=== PATIENT | female | born 1985 | race Caucasian/White ===

== ENCOUNTER 2019-01-13 14:39 | Emergency (ER) | payer BC ==
[~2019-01-13] VITALS: Ht 175.3 cm; Wt 107.5 kg
[2019-01-13 14:45] VITALS: BP_SYST 146
--- NOTE | 2019-01-13 14:45 | NUR ---
BROUGHT BACK TO BED #2 AND TRIAGED. REPORT GIVEN TO RAJINDER
--- NOTE | 2019-01-13 15:28 | NUR ---
GELA Duckworth at bedside examining patient.
[2019-01-13] MEDS ORDERED: ONDANSETRON HCL 4 MG/2 ML VIAL IVP ONE (15:30)
[2019-01-13] MEDS ORDERED: MORPHINE 4 MG/ML INJ. SYRINGE IVP ONE (15:30)
--- NOTE | 2019-01-13 15:30 | NUR ---
Patient presented to ER with abdominal pain x1 1/2 weeks. Patient alert and orietned, ambulatory to ER, arrived with , patient states abdominal pain is from ovarian cyst rupture. Patient states pain is 10/10, denies N/V/D, afebrile, skin pink.
--- NOTE | 2019-01-13 15:45 | NUR ---
Patient to Ultrasound with radiology staff via wheel chair
--- NOTE | 2019-01-13 16:28 | NUR ---
Patient to ER bed 2
--- NOTE | 2019-01-13 16:30 | NUR ---
# 20 gauge angiocath placed toleft arm. Use of asceptic technique. Opsite placed over site. Blood return noted. Blood for lab drawn from site. Flushed with 10 cc of normal saline. No evidence of infiltration noted. Patient tolerated well.
[2019-01-13 17:37] LABS: BILIRUBIN,URINE NEGATIVE (NEGATIVE); BLOOD, URINE 1+ (NEGATIVE); CLARITY/URINE SL HAZY (CLEAR); COLOR,URINE YELLOW (YELLOW); GLUCOSE,URINE NEGATIVE (NEGATIVE); KETONES,URINE 2+ (NEGATIVE); LEUKOCYTE ESTERASE ,URINE NEGATIVE (NEGATIVE); NITRITE, URINE NEGATIVE (NEGATIVE); PH,URINE 6.5 (5.0-8.0); PROTEIN URINE NEGATIVE (NEGATIVE)
[2019-01-13 17:45] VITALS: BP_SYST 146
--- NOTE | 2019-01-13 17:45 | NUR ---
Patient given written and verbal discharge instructions and verbalizes understanding. ER MD discussed with patient the results and treatment provided. Patient in stable condition. ID arm band removed. Rx of Percocet and Naproxen given. Patient educated on pain management and to follow up with PMD. Pain Scale 0/10 . Opportunity for questions provided and answered. Medication side effect fact sheet provided.
[2019-01-13 18:08] LABS: BACTERIA,URINE FEW /HPF (None Seen); MUCUS,URINE 1+ /LPF (None Seen); WBC,URINE 0-3 /HPF (0-3)
== END 2019-01-13 17:45 | disposition home or self-care (01) ==
LOC: SED 14:39
DX: N83.202 Unspecified ovarian cyst, left side (principal); N83.201 Unspecified ovarian cyst, right side; R03.0 Elevated blood-pressure reading, without diagnosis of hypertension; Z88.0 Allergy status to penicillin; Z88.1 Allergy status to other antibiotic agents
CPT/HCPCS: 76830; 76857; 81000; 81025; 96374; 96375; 99284; J2270; J2405